=== PATIENT | female | born 1995 | race Caucasian/White ===

== ENCOUNTER 2016-12-26 16:08 | Emergency (ER) | payer OTHER ==
[2014-10-12 05:55] VITALS: BMI 27.5
[~2016-12-26 16:08] MED LIST: [UNRECOGNIZED DRUG - REMARK]
== END 2016-12-26 18:14 | disposition home or self-care (01) ==
LOC: D.ER 16:08
DX: S60.131A Contusion of right middle finger with damage to nail, initial encounter (principal); S60.141A Contusion of right ring finger with damage to nail, initial encounter; W22.8XXA Striking against or struck by other objects, initial encounter; Y93.89 Activity, other specified; Y92.89 Other specified places as the place of occurrence of the external cause; R20.2 Paresthesia of skin

== ENCOUNTER 2016-12-28 21:35 | Emergency (ER) | payer OTHER ==
[2014-10-12 05:55] VITALS: BMI 27.5
== END 2016-12-29 00:52 | disposition home or self-care (01) ==
LOC: D.ER 21:35
DX: L03.011 Cellulitis of right finger (principal)

== ENCOUNTER 2018-04-27 19:29 | Emergency (ER) | payer SELFPAY ==
[~2018-04-27] VITALS: Ht 160 cm; Wt 68.2 kg
[2018-04-27 19:37] VITALS: Ht 160 cm; Wt 68.2 kg
[2018-04-27] MEDS ORDERED: OTC COUGH MEDS (19:39)
[2018-04-27] MEDS ORDERED: PHENERGAN DM SYR5 ML PO (20:29)
[2018-04-27] MEDS ORDERED: MEDROL DOSE PACK4 MG PO (20:29)
[2018-04-27 22:00] VITALS: BP 128/76
== END 2018-04-27 22:03 | disposition home or self-care (01) ==
LOC: D.ER 19:29
DX: J06.9 Acute upper respiratory infection, unspecified (principal); J40 Bronchitis, not specified as acute or chronic; F17.200 Nicotine dependence, unspecified, uncomplicated

== ENCOUNTER 2018-07-23 08:41 | Emergency (ER) | payer MEDICAID ==
[~2018-07-23] VITALS: Ht 160 cm; Wt 66.8 kg
[~2018-07-23 08:41] MED LIST changes: +MEDROL DOSE PACK4 MG PO; +OTC COUGH MEDS; +PHENERGAN DM SYR5 ML PO
[2018-07-23 08:55] VITALS: Ht 160 cm; Wt 66.8 kg
[2018-07-23 09:27] LABS: BASOPHILS 0.2 % (0-2); EOSINOPHILS 0.3 % (0-7); HEMATOCRIT 44.4 % (36.0-48.0); HEMOGLOBIN 15.1 g/dL (12-16); IMMATURE GRANULOCYTES 0.3 % (0-5); LYMPHOCYTES 18.5 % (15-50); MCH 27.6 pg (26.0-34.0); MCV 81.2 fL (80.0-100.0); MEAN PLATELET VOLUME 10.5 fL (7.4-10.4); MONOCYTES 4.7 % (2-11); PLATELET COUNT 261 10x3/uL (130-400); RBC 5.47 10x6/uL (4.00-5.40); RDW 14.2 % (11.5-14.5); WBC 8.9 10x3/uL (4.8-10.8)
[2018-07-23 09:37] LABS: APTT 29.9 SECONDS (22.8-39.4); INR 0.91 (0.85-1.17); PROTIME 11.8 SECONDS (11.6-15.0)
[2018-07-23 09:40] LABS: ALBUMIN 4.5 g/dL (3.4-5.0); ALKALINE PHOSPHATASE 94 U/L (46-116); ALT (SGPT) 52 U/L (10-68); BILIRUBIN - TOTAL 0.37 mg/dL (0.2-1.3); CALC OSMOLALITY 280 mosm/kg (275-300); CALCIUM 9.4 mg/dL (8.5-10.1); CARBON DIOXIDE 26.2 mmol/L (21.0-32.0); CHLORIDE - SERUM 104 mmol/L (98-107); CREATININE - SERUM 0.8 mg/dL (0.6-1.3); GLUCOSE 112 mg/dL (74-106); POTASSIUM - SERUM 3.6 mmol/L (3.5-5.1); PROTEIN - SERUM 8.8 g/dL (6.4-8.2); SODIUM 141 mmol/L (136-145); UREA NITROGEN 11 mg/dL (7-18); eGFR NON AFRICAN AMERICAN > 90 mL/min (90-120)
[2018-07-23 09:42] LABS: HCG SERUM NEGATIVE (NEGATIVE)
[2018-07-23 09:44] LABS: AMYLASE - SERUM 62 U/L (25-115); BILIRUBIN - DIRECT 0.09 mg/dL (0.00-0.30); BILIRUBIN - INDIRECT 0.28 mg/dL (0.00-1.00); LIPASE 200 U/L (73-393); TROPONIN-I < 0.017 ng/mL (0.000-0.060)
[2018-07-23 09:46] LABS: APPEARANCE CLEAR (CLEAR); BILIRUBIN NEGATIVE (NEGATIVE); COLOR YELLOW (YELLOW); GLUCOSE NEGATIVE (NEGATIVE); KETONE NEGATIVE (NEGATIVE); NITRITE NEGATIVE (NEGATIVE); PROTEIN NEGATIVE (NEGATIVE); UROBILINOGEN NORMAL (NORMAL)
[2018-07-23] MEDS ORDERED: CARAFATE1 G PO (11:40)
[2018-07-23] MEDS ORDERED: PROTONIX40 MG PO (11:40)
[2018-07-23 11:52] VITALS: BP 122/80
== END 2018-07-23 11:53 | disposition home or self-care (01) ==
LOC: D.ER 08:41
PROVIDERS: Family Medicine
DX: R10.13 Epigastric pain (principal); K29.70 Gastritis, unspecified, without bleeding; N83.202 Unspecified ovarian cyst, left side

== ENCOUNTER 2018-07-28 13:40 | Inpatient (IN) | payer MEDICAID ==
[~2018-07-28] VITALS: Ht 160 cm; Wt 66.7 kg
[~2018-07-28 13:40] MED LIST changes: +CARAFATE1 G PO; +PROTONIX40 MG PO
[2018-07-28] MEDS ORDERED: TYLENOL W/CODEI1 TAB PO (13:48)
[2018-07-28 14:15] LABS: BASOPHILS 0.3 % (0-2); EOSINOPHILS 1.9 % (0-7); HEMATOCRIT 41.4 % (36.0-48.0); IMMATURE GRANULOCYTES 0.3 % (0-5); MCH 27.4 pg (26.0-34.0); MCHC 33.8 g/dL (31.0-37.0); MEAN PLATELET VOLUME 10.1 fL (7.4-10.4); MONOCYTES 5.3 % (2-11); NEUTROPHILS 62.2 % (40-80); PLATELET COUNT 258 10x3/uL (130-400); RBC 5.11 10x6/uL (4.00-5.40); RDW 14.1 % (11.5-14.5); WBC 6.9 10x3/uL (4.8-10.8)
[2018-07-28 14:25] LABS: APTT 31.9 SECONDS (22.8-39.4)
[2018-07-28 14:26] LABS: HCG SERUM NEGATIVE (NEGATIVE); INR 0.9 (0.85-1.17); PROTIME 11.7 SECONDS (11.6-15.0)
[2018-07-28 14:43] LABS: ALKALINE PHOSPHATASE 85 U/L (46-116); ALT (SGPT) 32 U/L (10-68); BILIRUBIN - TOTAL 0.32 mg/dL (0.2-1.3); CALC OSMOLALITY 283 mosm/kg (275-300); CALCIUM 9.1 mg/dL (8.5-10.1); CARBON DIOXIDE 27.8 mmol/L (21.0-32.0); CHLORIDE - SERUM 107 mmol/L (98-107); CREATININE - SERUM 0.7 mg/dL (0.6-1.3); GLUCOSE 87 mg/dL (74-106); POTASSIUM - SERUM 3.8 mmol/L (3.5-5.1); PROTEIN - SERUM 7.9 g/dL (6.4-8.2); SODIUM 144 mmol/L (136-145); UREA NITROGEN 7 mg/dL (7-18); eGFR NON AFRICAN AMERICAN > 90 mL/min (90-120)
--- NOTE | 2018-07-28 15:45 | NUR ---
Received pt from ER by wheelchair, she is alert and orient x 3. IV to left AC with NS infusing per orders. Pt rates pain at 4/10 at this time states thats better than before, resumes texting on her phone. To bathroom per her request and understands that urine sample is needed. Report was received from Kojo Parks RN prior to pt arrival. Family in room at this time.
[2018-07-28 15:55] VITALS: Ht 160 cm; Wt 66.7 kg
--- NOTE | 2018-07-28 16:15 | NUR ---
Assessment completed. preop meds as ordered by anesthsia given and scanned to emar. SCD's bilat and pt states understanding of use. Denies any questions at this time.
--- NOTE | 2018-07-28 16:58 | NUR ---
surgery called requesting that pt be given pre-op meds reported that this has be completed.
[2018-07-28 17:18] LABS: APPEARANCE CLEAR (CLEAR); BILIRUBIN NEGATIVE (NEGATIVE); COLOR YELLOW (YELLOW); GLUCOSE NEGATIVE (NEGATIVE); KETONE NEGATIVE (NEGATIVE); NITRITE NEGATIVE (NEGATIVE); PROTEIN NEGATIVE (NEGATIVE); SPECIFIC GRAVITY 1.005 (1.005-1.020); UROBILINOGEN NORMAL (NORMAL)
--- NOTE | 2018-07-28 20:16 | NUR ---
LATEX FREE SMALL PLACED IN RECOVERY USING STERILE TECHNIQUE PER DR. ERVIN VERBAL ORDER. STAT LOCK IN PLACE. 75ML CLEAR YELLOW URINE TO DRAINAGE BAG.
--- NOTE | 2018-07-28 20:58 | NUR ---
PT TO LABOR UNIT FROM RECOVERY AT THIS TIME
[2018-07-28 21:00] VITALS: BP 126/73
--- NOTE | 2018-07-28 21:00 | NUR ---
POST OP VITALS TAKEN AT THIS TIME. PT RESTING COMFORTABLY WITH EYES CLOSED, O2 VIA NC@3L/MIN, 18 GAUGE IV TO LEFT A/C WITH LR INFUSING PER MD ORDERS. LOW TRANSVERSE ABDOMINAL INCISION CLOSED WITH GLUE, NO REDNESS SWELLING OR DRAINAGE NOTED. SMALL CATHETER DRAINING TO GRAVITY WITH 100 ML CLEAR YELLOW URINE NOTED IN UROMETER. SCD BOOTS IN PLACE AND MACHINE ON AND WORKING. FAMILY AT BEDSIDE.
[2018-07-28 21:35] VITALS: BP 126/74
[2018-07-28 21:50] VITALS: BP 126/67
--- NOTE | 2018-07-28 22:00 | NUR ---
PT RESTING QUIETLY WITH EYES CLOSED, RESPIRATIONS EVEN AND NON LABORED. OXYGEN TURNED DOEN TO 2L/MIN. IV RATE CHANGED TO 125ML/HR. FAMILY AT BEDSIDE, PROVIDED WITH LINENS. 50ML CLEAR YELLOW URINE NOTED IN UROMETER.
[2018-07-28 22:05] VITALS: BP 122/69
--- NOTE | 2018-07-28 23:00 | NUR ---
PATIENT RESTING QUIETLY WITH FAMILY AT BEDSIDE. PT STATES THAT SHE IS HAVING SOME PAIN BUT REQUESTS HER GLASSES FROM HER BAG AND IS ABLE TO SIT UP AND USE HER PHONE. FRESH ICE PACK PLACED TO ABDOMEN, &ICE CHIPS PROVIDED. 75 ML CLEAR YELLOW URINE NOTED IN UROMETER. INCENTIVE SPIROMETER PROVIDED WITH TEACHING, PT VERBALIZES UNDERSTANDING. OXYGEN REDUCED TO 1L/MIN. BED REMAINS LOCKED IN LOW POSITION, SIDE RAILS UPX2, CALL CARTY AND TRAY TABLE IN REACH.
[2018-07-28 23:07] VITALS: BP 111/80
[2018-07-29] VITALS (7 sets, daily range): BP systolic 103–127; BP diastolic 55–73
--- NOTE | 2018-07-29 00:20 | NUR ---
DILAUDID 1MG SLOW IVP PER MD ORDERS AND PT REQUEST. SEE EMAR. SMALL CATHETER DRAINING TO GRAVITY, 100ML CLEAR YELLOW URINE NOTED IN UROMETER. OXYGEN AT 2L/MIN VIA NASAL CANNULA.
--- NOTE | 2018-07-29 03:00 | NUR ---
percocet 5/325mg two tabs po per pt request and md orders.
--- NOTE | 2018-07-29 04:06 | NUR ---
PATIENT LYING IN BED, ENCOURAGED TO TAKE DEEP BREATHS. PT USING HER CELL PHONE, NO DISTRESS NOTED. WILL CONTINUE TO MONITOR.
--- NOTE | 2018-07-29 05:14 | NUR ---
DR ERVIN CALLED LABOR UNIT, REPORT GIVEN ON PT STATUS. NEW ORDERS NOTED TO GIVE TORADOL 30MG IVPX1 DOSE AND PT MAY HAVE A FULL LIQUID DIET FOR BREAKFAST.
[2018-07-29 07:30] LABS: CALC OSMOLALITY 282 mosm/kg (275-300); CALCIUM 8.7 mg/dL (8.5-10.1); CHLORIDE - SERUM 106 mmol/L (98-107); CREATININE - SERUM 0.7 mg/dL (0.6-1.3); GLUCOSE 129 mg/dL (74-106); SODIUM 142 mmol/L (136-145); UREA NITROGEN 6 mg/dL (7-18); eGFR NON AFRICAN AMERICAN > 90 mL/min (90-120)
[2018-07-29 08:08] LABS: BASOPHILS 0.1 % (0-2); EOSINOPHILS 0 % (0-7); HEMATOCRIT 38.2 % (36.0-48.0); HEMOGLOBIN 12.8 g/dL (12-16); IMMATURE GRANULOCYTES 0.3 % (0-5); LYMPHOCYTES 5.1 % (15-50); MCH 27.1 pg (26.0-34.0); MCHC 33.5 g/dL (31.0-37.0); MCV 80.8 fL (80.0-100.0); MEAN PLATELET VOLUME 10.6 fL (7.4-10.4); NEUTROPHILS 91.5 % (40-80); PLATELET COUNT 250 10x3/uL (130-400); RBC 4.73 10x6/uL (4.00-5.40); RDW 13.8 % (11.5-14.5)
[2018-07-29 08:12] LABS: WBC 13.5 10x3/uL (4.8-10.8)
--- NOTE | 2018-07-29 08:58 | NUR ---
ASSESSMENT DONE. PT AWAKE AND LOOKING AT CELL PHONE. RATES PAIN A 10 ON SCALE OF 0-10. STATES PAIN IS AT INCISION. REQUESTING PAIN MEDICATION. PT MOM AT BEDSIDE. STATES THAT DRANK ABOUT 50% OF FULL LIQ BREAKFAST.
--- NOTE | 2018-07-29 11:19 | NUR ---
IV CHANGED TO SALINE FLUSH PER ORDER DR ERVIN.
--- NOTE | 2018-07-29 11:24 | NUR ---
kim cath removed post bulb deflated- 1050cc urine return in bag.
--- NOTE | 2018-07-29 11:54 | NUR ---
states that pain is better. denies needing to void yet.
--- NOTE | 2018-07-29 12:40 | NUR ---
PT OOB AND AMB TO BR. VOIDS 200 ML OF CLEAR, YELLOW URINE. PERICARE DONE PER PT. PANTIES AND PAD ON. PT AMBULATES BACK TO BED. NOLAN ACTIVITY WELL. PT PROVIDED WITH FRESH ICE PACK PER REQUEST. SR UPX 2. CALL LIGHT IN REACH. FAMILY MEMBER CONTINUES IN ROOM WITH PT.
--- NOTE | 2018-07-29 13:36 | NUR ---
rings call light- requesting pain medication. rates pain an 8 on scale of 0-10. denies passing gas yet. med given.
--- NOTE | 2018-07-29 15:00 | NUR ---
shower done- linens changed. ambulating in hallway. dr yusuf in unit.
--- NOTE | 2018-07-29 18:32 | NUR ---
requesting saline lock out- states "it hurts" appearance wnl. saline lock removed with cath tip intact. pressure held and bandaide applied. ambulates around unit- requesting pain medication after walking. rates pain an 8 on scale of 0-10. using incenstive annabelle.
--- NOTE | 2018-07-29 19:02 | NUR ---
PT. AWAKE AND ORIENTED. LYING ON BACK WITH HOB AT 45 DEGREES. PT. EATING ICE CREAM AND TEXTING ON PHONE, CHEERFUL. INQUIRED TO PT'S PAIN SCORE AND PT. STATES "PROBABLY AN 8". PT'S MOTHER AT BEDSIDE AND STATES "SHE CAN TOLERATE ANY DISCOMFORT." INQUIRED OF PT. WHAT THE LOWEST PAIN SCORE THAT SHE HAD HAD SINCE SURGERY AND PT. STATES "6". ABD. INCISION CLEAN AND DRY. NO VAGINAL DRAINAGE NOTED. BREATH SOUNDS CLEAR AND BOWEL SOUNDS ACTIVE. PT. REPORTS THAT SHE IS PASSING GAS. DENIES ANY PAIN IN LOWER EXTREMITIES. INQUIRED IF PT. HAD ANY ASSISTANCE FOR WHEN SHE GOES HOME. REPORTS THAT SHE LIVES WITH A BOYFRIEND AND HE IS TAKING OFF WORK. ENCOURAGED PT. TO CONTINUE TO COUGH AND DEEP BREATHE AND USE INCENTIVE SPIROMETER. REPORTS THAT SHE CAN ACCOMPLISH UP TO 1500 ON IS. ENCOURAGED TO TRY AND GET IS TO 2000. ENCOURAGED PT. TO GET OUT OF BED AND WALK AGAIN IN HALLWAY BEFORE GOING TO BED FOR THE NIGHT. PT. STATED UNDERSTANDING TO ALL INSTRUCTIONS/ENCOURAGEMENT. PT'S MOTHER AT BEDSIDE.
--- NOTE | 2018-07-29 20:17 | NUR ---
ON PHONE AND WATCHING TV. LYING ON BACK WITH HOB AT 30 DEGREES. PT'S MOTHER ON SOFA. DENIES ANY NEEDS.
--- NOTE | 2018-07-29 21:33 | NUR ---
C/O ITCHING FROM "HEAD TO TOE, BUT ESPECIALLY MY FEET." STATES THAT NOTICED SHE BEGAN ITCHING FOLLOWING TAKING A SHOWER THIS AFTERNOON AND THINKS THAT SHE HOSPITAL SOAP HAS CAUSED IT. REQUESTS BENADRYL. SKIN INSPECTIONS DONE, NO RASH NOTED, NO PABLO NOTED ON SKIN FROM SCRATCHING. MEDS REVIEWED, DR. ERVIN NOTIFIED AND ORDERS REC'D FOR 50 MG PO BENADRYL AND 10 MG PO AMBIEN.
--- NOTE | 2018-07-29 21:51 | NUR ---
WALKING IN HALLWAY. GAIT STEADY. PT'S MOTHER WALKING WITH HER.
--- NOTE | 2018-07-29 22:14 | NUR ---
SANDWICH TRAY SERVED TO PT. PT'S MOTHER REMAINS IN ROOM WITH PT.
--- NOTE | 2018-07-29 22:40 | NUR ---
BACK TO ROOM FROM AMBULATING ON UNIT. BENADRYL AND AMBIEN GIVEN PER ORDER. PT EDUCATED ON MEDS, VERBALIZES UNDERSTANDING. VSS. C/O PAIN 10/31, STATES THAT PAIN IS BEST THAT IT HAS BEEN SINCE HAVING SURGERY. SCD'S PLACED ON BLE. DENIES ADDITIONAL NEEDS. PT'S MOTHER REMAINS AT BEDSIDE. BED IN LOW POSITION WITH UPPER SIDE RAILS RAISED X2. CALL LIGHT AND PHONE WITHIN REACH. WILL CONTINUE TO MONITOR AND ASSIST PRN.
--- NOTE | 2018-07-29 23:52 | NUR ---
SCD PUMP BEEPING. INTO PT. ROOM. SCD TUBING STRAIGHTENED AND BEEPING STOPPED. PT. LYING ON RT SIDE WITH UNLABORED RESPIRATIONS. 600CC URINE NOTED IN [place] HAT AND EMPTIED. PT'S MOTHER SLEEPING ON SOFA. NEITHER PT. OR MOTHER AROUSED TO THIS NURSE IN ROOM.
--- NOTE | 2018-07-30 01:26 | NUR ---
LYING ON BACK WITH EYES CLOSED. RESPIRATIONS UNLABORED. SCDS ON AND FUNCTIONAL. SIDE RAILS UP X 2. PT'S MOTHER SLEEPING ON SOFA.
--- NOTE | 2018-07-30 03:44 | NUR ---
LYING ON BACK WITH EYES CLOSED. RESPIRATIONS UNLABORED. PT'S MOTHER SLEEPING ON SOFA.
[2018-07-30 04:32] VITALS: BP 106/59
--- NOTE | 2018-07-30 04:32 | NUR ---
AWAKENED FOR VITAL SIGN ASSESSMENT. DR. ERVIN TO ROOM FOR ROUNDING. INFORMED PT. THAT SHE WILL DISCHARGE TODAY AND SCRIPTS ARE WRITTEN. INFORMED PT. THAT HE DESIRES TO SEE IN OFFICE IN 2 WEEKS. PT. AWAKE AT SHORT INTERVALS. LYING ON RT, SIDE WITH HOB AT 15 DEGREES. RESPIRATIONS UNLABORED.
--- NOTE | 2018-07-30 04:46 | OP ---
PATIENT NAME: ITA HUANG MEDICAL RECORD: [id number] :93 LOCATION:[id number] ADMISSION DATE:07/28/18 SURGEON: WILD ERVIN MD DATE OF OPERATION: 07/28/2018 PREOPERATIVE DIAGNOSES: 1. Abdominal pain. 2. Left ovarian mass. POSTOPERATIVE DIAGNOSES: 1. Abdominal pain. 2. Left ovarian mass. 3. Left endometrioma. PROCEDURES: 1. Diagnostic laparoscopy. 2. Exploratory laparotomy. 3. Lysis of adhesions. 4. Left oophorectomy. SURGEON: Wild Ervin MD FENCE INSTALLER FOREMAN: Osmani Rose. ANESTHESIA: General. FINDINGS: Left ovary is enlarged to approximately 7-8 cm. It is densely adhesed to the large bowel on the left side. Uterus and right tube and ovary unremarkable. Multiple powder burn lesions across the pelvis consistent with endometriosis. SPECIMEN REMOVED: Left ovary. SPECIMEN DISPOSITION: Pathology. ESTIMATED BLOOD LOSS: 150. FLUIDS: 1600cc of lactated Ringer's. URINE OUTPUT: Quantity sufficient void prior to this procedure. DRAINS: Ellison to gravity. COMPLICATIONS: None. INDICATIONS: The patient is a 23-year-old female seen in the Emergency Room with a large cyst. The patient was evaluated in the clinic and given precautions to return for worsening pain. The patient states that the pain suddenly increased and did not subside. She presents with a tender abdomen and was consented for a diagnostic laparoscopy and any indicated procedure. DESCRIPTION OF PROCEDURE: After informed consent was assured, the patient was taken to the operating room where anesthetic was obtained. The patient was now prepped and draped in the usual sterile fashion. The infraumbilical incision was made to accommodate a 5-mm trocar, which was inserted under direct OPERATIVE REPORT [id number] ITA HUANG visualization. Pneumoperitoneum was developed. The above findings were encountered. The decision was made to move to an exploratory laparotomy. A Pfannenstiel skin incision was made and the abdomen entered. An Ehsan O self-retaining ring was inserted and tightened. Left ovary is visualized. Ovary is firmly attached to bowel. Multiple adhesions were taken down with Metzenbaum scissors. Once the ovary is mobilized to its fullest extent with a dense adhesion posteriorly to the large bowel, Katerine clamps were used to remove the ovary from its attachments to the adnexa. This begins medially with serial clamps applied to the ovary with multiple endometriomas are removed. A section of the ovary remains behind attached to the large bowel due to its dense adhesions. Pelvis was copiously irrigated and irrigant removed. Several areas of bleeding were noticed along the raw edges from the lysis of adhesions. The Bovie cautery as well as Surgicel powder used to obtain hemostasis. Over this area, Interceed was placed. Sponge, lap, and needle count was correct times 2. The fascia was closed with a running stitch of 0 Vicryl and then skin closed with a subcuticular stitch using 4-0 Monocryl on a cutter. The trocar site is closed with a 3-0 chromic. The final sponge, lap, and needle counts correct. TRANSINT:[id number] Voice Confirmation ID: [id number] DOCUMENT ID: [id number] WILD ERVIN MD at 0446 CC: [id number] DICTATION DATE: 07/28/182001 UNLOADING CHECKER: 07/29/18 0144 ADM IN [facility] [address] [place] [address]
--- NOTE | 2018-07-30 05:55 | NUR ---
SCDS DISCONNECTED AND PT. UP TO BATHROOM. VOIDED AND BACK TO BED. SCDS RECONNECTED TO PUMP. ASKED PT. IF SHE REMEMBERED THAT DR. ERVIN MADE ROUNDS ON HER AND TOLD HER SHE COULD DISCHARGE. PT. STATES THAT SHE WAS NOT AWARE OF HIS VISIT. PT'S MOTHER ASLEEP ON SOFA.
--- NOTE | 2018-07-30 07:30 | NUR ---
Attempt to waken pt verbally and with touch, she does open her eyes but goes right back to sleep. Will try again after breakfast has been delivered.
[2018-07-30] MEDS ORDERED: PERCOCET 5-3251 TAB PO (08:42)
[2018-07-30] MEDS ORDERED: IBUPROFEN800 MG PO (08:42)
[2018-07-30 09:00] VITALS: BP 126/72
--- NOTE | 2018-07-30 09:00 | NUR ---
Pt awaken with touch and repeatedly calling her name. Her mother wakes at this time also. Pt does get up with encouragment from nurse and amb to bathroom per herself. AM assessment completed as seen on flowsheet. Per pt she does not remember Dr Balbuena visiting this am but does know she is going home today and has called her boyfriend to come and pick her up.
--- NOTE | 2018-07-30 10:04 | NUR ---
PAIN MED GIVEN REQUESTED, RATES PAIN AT INCISION SITE 11/30. ALSO GIVEN SMALL COLA PER HER REQUEST.
--- NOTE | 2018-07-30 10:16 | NUR ---
verbal and written discharge instructions gone over with pt, she is provided with written scripts for Percocet 5/325mg and Motrin 800mg and states understanding of use. S/S of infection gone over verbally and she states her understanding. Will call when her ride is here.
--- NOTE | 2018-07-30 10:39 | NUR ---
PT TAKEN OUT BY WHEELCHAIR, HOME WITH FAMILY BY PRIVATE CAR.
--- NOTE | 2018-07-30 19:04 | DS ---
PATIENT:ITA HUANG :89 MEDICAL RECORD: [id number] DISCHARGE SUMMARY ADMISSION DATE: 07/28/18 DISCHARGE DATE: 07/30/18 DATE OF ADMISSION: 07/28/2018 DATE OF DISCHARGE: 07/30/2018 ADMISSION DIAGNOSES: 1. Pelvic mass. 2. Abdominal pain. DISCHARGE DIAGNOSES: 1. Pelvic mass. 2. Abdominal pain. 3. Endometrioma. 4. Endometriosis. ATTENDING: Rika Ervin MD PROCEDURE PERFORMED WHILE HOSPITALIZED: 1. Diagnostic laparoscopy. 2. Lysis of adhesions. 3. Left oophorectomy. 4. Exploratory laparotomy. HISTORY OF PRESENT ILLNESS AND INDICATION FOR HOSPITALIZATION: See the H&P in the chart. SUMMARY OF HOSPITALIZATION: The patient was admitted to the hospital and underwent the procedure without incident. The patient has been doing well postop, is voiding without difficulty, tolerating regular diet and ambulating. The incision was clean, dry and intact at the time of discharge. Treatment for her endometriosis has been discussed at length and she will follow up with me in 2 weeks at the clinic. DISCHARGE MEDICATIONS: Include Percocet and ibuprofen. The patient has been given the standard postoperative precautions. TRANSINT:[id number] Voice Confirmation ID: [id number] DOCUMENT ID: [id number] RIKA ERVIN MD at 1904 CC: [id number] DICTATION DATE: 07/30/18 045 CUSTODIAL LABORER: 07/30/18 0527 DIS IN 07/30/18 [facility] [address] [place] [id number]
[2018-07-31] MEDS ORDERED: PHENERGAN25 M1 PO (22:33)
== END 2018-07-30 10:40 | disposition home or self-care (01) | DRG 743 ==
LOC: D.ER 13:40 → D.LD 14:30 → D.EDHOLD 14:30 → OBSVTIME 14:30 → D.LD 14:34
PROVIDERS: Family Medicine; ADMIT Obstetrics & Gynecology; ATTEND Obstetrics & Gynecology
PROC: 0UT10ZZ Resection of Left Ovary, Open Approach (ICD-10-PCS; principal; 2018-07-28 13:00)
DX: N80.1 Endometriosis of ovary (principal); N73.6 Female pelvic peritoneal adhesions (postinfective); N80.9 Endometriosis, unspecified

== ENCOUNTER 2018-07-31 20:27 | Emergency (ER) | payer MEDICAID ==
[~2018-07-31] VITALS: Ht 160 cm; Wt 63.5 kg
[~2018-07-31 20:27] MED LIST changes: +IBUPROFEN800 MG PO; +PERCOCET 5-3251 TAB PO; +TYLENOL W/CODEI1 TAB PO
[2018-07-31 20:33] VITALS: Ht 160 cm; Wt 63.5 kg
[2018-07-31 21:19] LABS: BASOPHILS 0.3 % (0-2); EOSINOPHILS 3.1 % (0-7); HEMATOCRIT 38.3 % (36.0-48.0); HEMOGLOBIN 12.9 g/dL (12-16); IMMATURE GRANULOCYTES 0.4 % (0-5); MCH 27.4 pg (26.0-34.0); MCHC 33.7 g/dL (31.0-37.0); MCV 81.5 fL (80.0-100.0); MEAN PLATELET VOLUME 9.9 fL (7.4-10.4); MONOCYTES 8.4 % (2-11); NEUTROPHILS 56.8 % (40-80); PLATELET COUNT 255 10x3/uL (130-400); RDW 13.7 % (11.5-14.5); WBC 6.8 10x3/uL (4.8-10.8)
[2018-07-31 21:36] LABS: ALBUMIN 3.4 g/dL (3.4-5.0); ALKALINE PHOSPHATASE 92 U/L (46-116); ALT (SGPT) 50 U/L (10-68); BILIRUBIN - TOTAL 0.38 mg/dL (0.2-1.3); CALC OSMOLALITY 282 mosm/kg (275-300); CALCIUM 8.8 mg/dL (8.5-10.1); CARBON DIOXIDE 26.5 mmol/L (21.0-32.0); CHLORIDE - SERUM 105 mmol/L (98-107); CREATININE - SERUM 0.8 mg/dL (0.6-1.3); GLUCOSE 92 mg/dL (74-106); PROTEIN - SERUM 7.1 g/dL (6.4-8.2); SODIUM 143 mmol/L (136-145); UREA NITROGEN 6 mg/dL (7-18); eGFR NON AFRICAN AMERICAN > 90 mL/min (90-120)
[2018-07-31] MEDS ORDERED: PHENERGAN25 M1 PO (22:33)
[2018-07-31 23:11] VITALS: BP 123/79
== END 2018-07-31 23:11 | disposition home or self-care (01) ==
LOC: D.ER 20:27
PROVIDERS: Emergency Medicine
DX: R11.0 Nausea (principal)

== ENCOUNTER 2018-08-21 04:17 | Emergency (ER) | payer MEDICAID ==
[~2018-08-21] VITALS: Ht 160 cm; Wt 68.5 kg
[~2018-08-21 04:17] MED LIST changes: +PHENERGAN25 M1 PO
[2018-08-21 04:20] VITALS: Ht 160 cm; Wt 68.5 kg
[2018-08-21 04:57] LABS: BASOPHILS 0.3 % (0-2); EOSINOPHILS 5.7 % (0-7); HEMATOCRIT 38.3 % (36.0-48.0); HEMOGLOBIN 12.7 g/dL (12-16); IMMATURE GRANULOCYTES 0.1 % (0-5); LYMPHOCYTES 31.7 % (15-50); MCH 27.2 pg (26.0-34.0); MCHC 33.2 g/dL (31.0-37.0); MEAN PLATELET VOLUME 10.5 fL (7.4-10.4); MONOCYTES 6.7 % (2-11); NEUTROPHILS 55.5 % (40-80); PLATELET COUNT 235 10x3/uL (130-400); RBC 4.67 10x6/uL (4.00-5.40); RDW 14.2 % (11.5-14.5); WBC 7.4 10x3/uL (4.8-10.8)
[2018-08-21 05:07] LABS: HCG URINE NEGATIVE (NEGATIVE)
[2018-08-21 05:08] LABS: APPEARANCE HAZY (CLEAR); BACTERIA NONE SEEN /hpf (NONE SEEN); BILIRUBIN NEGATIVE (NEGATIVE); COLOR YELLOW (YELLOW); EPITHELIAL CELLS 0-5 /hpf (0-5); GLUCOSE NEGATIVE (NEGATIVE); KETONE NEGATIVE (NEGATIVE); NITRITE NEGATIVE (NEGATIVE); PROTEIN NEGATIVE (NEGATIVE); RED CELLS - URINE 25-50 /hpf (0-5); UROBILINOGEN NORMAL (NORMAL); WHITE CELLS - URINE 0-5 /hpf (0-5)
[2018-08-21 05:10] LABS: ALBUMIN 3.6 g/dL (3.4-5.0); ALKALINE PHOSPHATASE 66 U/L (46-116); ALT (SGPT) 23 U/L (10-68); BILIRUBIN - TOTAL 0.26 mg/dL (0.2-1.3); CALC OSMOLALITY 278 mosm/kg (275-300); CALCIUM 8.8 mg/dL (8.5-10.1); CARBON DIOXIDE 23.8 mmol/L (21.0-32.0); CHLORIDE - SERUM 107 mmol/L (98-107); CREATININE - SERUM 0.7 mg/dL (0.6-1.3); GLUCOSE 104 mg/dL (74-106); POTASSIUM - SERUM 4.2 mmol/L (3.5-5.1); PROTEIN - SERUM 6.8 g/dL (6.4-8.2); SODIUM 141 mmol/L (136-145); UREA NITROGEN 8 mg/dL (7-18); eGFR NON AFRICAN AMERICAN > 90 mL/min (90-120)
[2018-08-21 05:14] LABS: AMYLASE - SERUM 62 U/L (25-115); LIPASE 331 U/L (73-393)
[2018-08-21 05:16] LABS: TROPONIN-I < 0.017 ng/mL (0.000-0.060)
[2018-08-21] MEDS ORDERED: ACETAMINOPHEN500 M1 PO (07:14)
[2018-08-21] MEDS ORDERED: IBUPROFEN800 MG PO (07:14)
[2018-08-21] MEDS ORDERED: CYCLOBENZAPRINE10 MG PO (07:14)
[2018-08-21 07:28] VITALS: BP 104/68
== END 2018-08-21 07:29 | disposition home or self-care (01) ==
LOC: D.ER 04:17
PROVIDERS: Family Medicine
DX: G89.18 Other acute postprocedural pain (principal); N94.6 Dysmenorrhea, unspecified

== ENCOUNTER 2018-09-14 14:59 | Emergency (ER) | payer MEDICAID ==
[~2018-09-14] VITALS: Ht 160 cm; Wt 70.5 kg
[~2018-09-14 14:59] MED LIST changes: +ACETAMINOPHEN500 M1 PO; +CYCLOBENZAPRINE10 MG PO
[2018-09-14 15:01] VITALS: BP 121/83; Ht 160 cm; Wt 70.5 kg
[2018-09-14 16:24] LABS: BASOPHILS 0.2 % (0-2); EOSINOPHILS 2.7 % (0-7); HEMATOCRIT 38.5 % (36.0-48.0); HEMOGLOBIN 13.3 g/dL (12-16); IMMATURE GRANULOCYTES 0.3 % (0-5); MCH 27.4 pg (26.0-34.0); MCHC 34.5 g/dL (31.0-37.0); MCV 79.2 fL (80.0-100.0); MEAN PLATELET VOLUME 9.8 fL (7.4-10.4); MONOCYTES 4.8 % (2-11); PLATELET COUNT 249 10x3/uL (130-400); RBC 4.86 10x6/uL (4.00-5.40); RDW 13.2 % (11.5-14.5); WBC 10.2 10x3/uL (4.8-10.8)
[2018-09-14 16:26] LABS: APPEARANCE CLEAR (CLEAR); COLOR YELLOW (YELLOW); GLUCOSE NEGATIVE (NEGATIVE); NITRITE NEGATIVE (NEGATIVE); PROTEIN NEGATIVE (NEGATIVE)
[2018-09-14 16:27] LABS: BILIRUBIN NEGATIVE (NEGATIVE); KETONE NEGATIVE (NEGATIVE); UROBILINOGEN NORMAL (NORMAL)
[2018-09-14 16:48] LABS: ALBUMIN 3.8 g/dL (3.4-5.0); ALKALINE PHOSPHATASE 69 U/L (46-116); ALT (SGPT) 26 U/L (10-68); BILIRUBIN - TOTAL 0.24 mg/dL (0.2-1.3); CALC OSMOLALITY 275 mosm/kg (275-300); CALCIUM 9.3 mg/dL (8.5-10.1); CARBON DIOXIDE 29.7 mmol/L (21.0-32.0); CHLORIDE - SERUM 101 mmol/L (98-107); CREATININE - SERUM 0.7 mg/dL (0.6-1.3); GLUCOSE 77 mg/dL (74-106); POTASSIUM - SERUM 3.2 mmol/L (3.5-5.1); PROTEIN - SERUM 7.6 g/dL (6.4-8.2); SODIUM 139 mmol/L (136-145); UREA NITROGEN 9 mg/dL (7-18); eGFR NON AFRICAN AMERICAN > 90 mL/min (90-120)
[2018-09-14 18:22] LABS: HCG URINE NEGATIVE (NEGATIVE)
[2018-09-14] MEDS ORDERED: BACLOFEN20 M1 PO (19:06)
[2018-09-14] MEDS ORDERED: VOLTAREN75 MG PO (19:06)
== END 2018-09-14 20:09 | disposition home or self-care (01) ==
LOC: D.ER 14:59
PROVIDERS: Family Medicine
DX: M25.561 Pain in right knee (principal); S30.1XXA Contusion of abdominal wall, initial encounter; V29.9XXA Motorcycle rider (driver) (passenger) injured in unspecified traffic accident, initial encounter

== ENCOUNTER 2018-10-19 09:00 | Emergency (ER) | payer MEDICAID ==
[~2018-10-19] VITALS: Ht 160 cm; Wt 70.5 kg
[~2018-10-19 09:00] MED LIST changes: +BACLOFEN20 M1 PO; +VOLTAREN75 MG PO
[2018-10-19 09:04] VITALS: Ht 160 cm; Wt 70.5 kg
[2018-10-19 09:39] LABS: BASOPHILS 0.3 % (0-2); EOSINOPHILS 2.3 % (0-7); HEMATOCRIT 39.8 % (36.0-48.0); HEMOGLOBIN 13.6 g/dL (12-16); IMMATURE GRANULOCYTES 0.3 % (0-5); LYMPHOCYTES 23.8 % (15-50); MCH 27.3 pg (26.0-34.0); MCHC 34.2 g/dL (31.0-37.0); MCV 79.8 fL (80.0-100.0); MEAN PLATELET VOLUME 10.2 fL (7.4-10.4); MONOCYTES 6.1 % (2-11); NEUTROPHILS 67.2 % (40-80); PLATELET COUNT 226 10x3/uL (130-400); RBC 4.99 10x6/uL (4.00-5.40); RDW 13.6 % (11.5-14.5); WBC 7.4 10x3/uL (4.8-10.8)
[2018-10-19 09:47] LABS: HCG SERUM NEGATIVE (NEGATIVE)
[2018-10-19 09:52] LABS: ALKALINE PHOSPHATASE 100 U/L (46-116); ALT (SGPT) 52 U/L (10-68); BILIRUBIN - TOTAL 0.27 mg/dL (0.2-1.3); CALC OSMOLALITY 280 mosm/kg (275-300); CARBON DIOXIDE 28.5 mmol/L (21.0-32.0); CHLORIDE - SERUM 107 mmol/L (98-107); CREATININE - SERUM 0.8 mg/dL (0.6-1.3); GLUCOSE 86 mg/dL (74-106); PROTEIN - SERUM 7.7 g/dL (6.4-8.2); SODIUM 142 mmol/L (136-145); UREA NITROGEN 11 mg/dL (7-18); eGFR NON AFRICAN AMERICAN > 90 mL/min (90-120)
[2018-10-19 09:55] LABS: AMYLASE - SERUM 63 U/L (25-115); LIPASE 206 U/L (73-393); TROPONIN-I < 0.017 ng/mL (0.000-0.060)
[2018-10-19 10:07] LABS: APPEARANCE CLEAR (CLEAR); COLOR YELLOW (YELLOW)
[2018-10-19 10:08] LABS: BILIRUBIN NEGATIVE (NEGATIVE); GLUCOSE NEGATIVE (NEGATIVE); KETONE NEGATIVE (NEGATIVE); NITRITE NEGATIVE (NEGATIVE); PROTEIN TRACE mg/dL (NEGATIVE); SPECIFIC GRAVITY 1.015 (1.005-1.020); UROBILINOGEN NORMAL (NORMAL)
[2018-10-19 10:09] LABS: BACTERIA MODERATE /hpf (NONE SEEN); RED CELLS - URINE OCC /hpf (0-5); WHITE CELLS - URINE OCC /hpf (0-5)
[2018-10-19] MEDS ORDERED: ZOFRAN ODT4 MG/UDTAB PO (11:29)
[2018-10-19 12:00] VITALS: BP 134/76
== END 2018-10-19 12:00 | disposition home or self-care (01) ==
LOC: D.ER 09:00
PROVIDERS: Emergency Medicine
DX: R11.10 Vomiting, unspecified (principal)

== ENCOUNTER 2018-10-28 19:33 | Emergency (ER) | payer MEDICAID ==
[~2018-10-28 19:33] MED LIST changes: +ZOFRAN ODT4 MG/UDTAB PO
[2018-10-28 19:42] VITALS: BP 141/106; BMI 27.8
[2018-10-28] MEDS ORDERED: CLEOCIN HCL300 MG PO (21:20)
== END 2018-10-28 21:23 | disposition home or self-care (01) ==
LOC: D.ER 19:33
DX: T25.022A Burn of unspecified degree of left foot, initial encounter (principal); T25.021A Burn of unspecified degree of right foot, initial encounter; X10.2XXA Contact with fats and cooking oils, initial encounter; Y93.G3 Activity, cooking and baking; Y92.010 Kitchen of single-family (private) house as the place of occurrence of the external cause

== ENCOUNTER 2018-11-16 04:25 | Emergency (ER) | payer MEDICAID ==
[~2018-11-16] VITALS: Ht 160 cm; Wt 68.2 kg
[~2018-11-16 04:25] MED LIST changes: +CLEOCIN HCL300 MG PO
[2018-11-16 04:29] VITALS: Ht 160 cm; Wt 68.2 kg
[2018-11-16 05:12] LABS: BASOPHILS 0.2 % (0-2); EOSINOPHILS 1.4 % (0-7); HEMATOCRIT 38.7 % (36.0-48.0); HEMOGLOBIN 13.4 g/dL (12-16); IMMATURE GRANULOCYTES 0.2 % (0-5); LYMPHOCYTES 24.5 % (15-50); MCH 27.3 pg (26.0-34.0); MCHC 34.6 g/dL (31.0-37.0); MEAN PLATELET VOLUME 10.1 fL (7.4-10.4); NEUTROPHILS 67.7 % (40-80); PLATELET COUNT 242 10x3/uL (130-400); RDW 14.3 % (11.5-14.5); WBC 8.7 10x3/uL (4.8-10.8)
[2018-11-16 05:33] LABS: ALBUMIN 3.8 g/dL (3.4-5.0); ALKALINE PHOSPHATASE 79 U/L (46-116); ALT (SGPT) 21 U/L (10-68); BILIRUBIN - TOTAL 0.24 mg/dL (0.2-1.3); CALC OSMOLALITY 280 mosm/kg (275-300); CALCIUM 9.5 mg/dL (8.5-10.1); CARBON DIOXIDE 25.2 mmol/L (21.0-32.0); CHLORIDE - SERUM 105 mmol/L (98-107); CREATININE - SERUM 0.8 mg/dL (0.6-1.3); GLUCOSE 116 mg/dL (74-106); POTASSIUM - SERUM 3.6 mmol/L (3.5-5.1); PROTEIN - SERUM 7.6 g/dL (6.4-8.2); SODIUM 140 mmol/L (136-145); UREA NITROGEN 14 mg/dL (7-18); eGFR NON AFRICAN AMERICAN > 90 mL/min (90-120)
[2018-11-16 05:37] LABS: AMYLASE - SERUM 58 U/L (25-115); LIPASE 263 U/L (73-393)
[2018-11-16 05:39] LABS: TROPONIN-I < 0.017 ng/mL (0.000-0.060)
[2018-11-16 05:40] LABS: HCG SERUM NEGATIVE (NEGATIVE)
[2018-11-16 05:46] LABS: APPEARANCE CLEAR (CLEAR); BILIRUBIN NEGATIVE (NEGATIVE); COLOR YELLOW (YELLOW); GLUCOSE NEGATIVE (NEGATIVE); KETONE NEGATIVE (NEGATIVE); NITRITE NEGATIVE (NEGATIVE); PROTEIN NEGATIVE (NEGATIVE); SPECIFIC GRAVITY 1.015 (1.005-1.020); UROBILINOGEN NORMAL (NORMAL)
[2018-11-16 05:47] LABS: BACTERIA FEW /hpf (NONE SEEN); EPITHELIAL CELLS 0-5 /hpf (0-5); RED CELLS - URINE 0-5 /hpf (0-5); WHITE CELLS - URINE 0-5 /hpf (0-5)
[2018-11-16] MEDS ORDERED: CYCLOBENZAPRINE10 MG PO (06:51)
[2018-11-16] MEDS ORDERED: ACETAMINOPHEN500 M1 PO (06:51)
[2018-11-16] MEDS ORDERED: IBUPROFEN800 MG PO (06:51)
[2018-11-16 07:14] VITALS: BP 109/74
== END 2018-11-16 07:16 | disposition home or self-care (01) ==
LOC: D.ER 04:25
PROVIDERS: Family Medicine
DX: N80.9 Endometriosis, unspecified (principal)

== ENCOUNTER 2018-12-30 15:30 | Emergency (ER) | payer SELFPAY ==
[~2018-12-30] VITALS: Ht 160 cm; Wt 70.5 kg
[2018-12-30 15:32] VITALS: Ht 160 cm; Wt 70.5 kg
[2018-12-30 16:11] LABS: APPEARANCE CLEAR (CLEAR); BILIRUBIN NEGATIVE (NEGATIVE); COLOR YELLOW (YELLOW); GLUCOSE NEGATIVE (NEGATIVE); KETONE NEGATIVE (NEGATIVE); NITRITE NEGATIVE (NEGATIVE); PROTEIN NEGATIVE (NEGATIVE); UROBILINOGEN NORMAL (NORMAL)
[2018-12-30 16:13] LABS: BACTERIA MODERATE /hpf (NONE SEEN); EPITHELIAL CELLS 0-5 /hpf (0-5); MUCUS <1+ /lpf (NONE SEEN); RED CELLS - URINE 0-5 /hpf (0-5); WHITE CELLS - URINE OCC /hpf (0-5)
[2018-12-30] MEDS ORDERED: NAPROSYN500 MG PO (17:19)
[2018-12-30] MEDS ORDERED: CYCLOBENZAPRINE10 MG PO (17:19)
[2018-12-30] MEDS ORDERED: CIPRO500 MG PO (17:21)
--- NOTE | 2018-12-30 17:58 | NUR ---
PT IS A LOW RISK AND RESULTS REVIEWED WITH DR. WANG. RESOURCES GIVEN AND REVIEWED WITH THE PT AND SHE VERBALIZED UNDERSTANDING.
[2018-12-30 17:59] VITALS: BP 106/72
== END 2018-12-30 17:59 | disposition home or self-care (01) ==
LOC: D.ER 15:30
PROVIDERS: Family Medicine
DX: S39.012A Strain of muscle, fascia and tendon of lower back, initial encounter (principal); X50.0XXA Overexertion from strenuous movement or load, initial encounter

== ENCOUNTER 2019-04-17 02:05 | Emergency (ER) | payer OTHER ==
[~2019-04-17] VITALS: Ht 160 cm; Wt 81.8 kg
[~2019-04-17 02:05] MED LIST changes: +CIPRO500 MG PO; +NAPROSYN500 MG PO
[2019-04-17 02:09] VITALS: Ht 160 cm; Wt 81.8 kg
[2019-04-17] MEDS ORDERED: BUSPAR10 MG (02:10)
[2019-04-17] MEDS ORDERED: CELEXA10 MG (02:11)
[2019-04-17] MEDS ORDERED: ZYPREXA7.5 MG (02:11)
[2019-04-17] MEDS ORDERED: OMEPRAZOLE20 M1 (02:12)
[2019-04-17] MEDS ORDERED: MEDROL DOSE PACK4 MG PO (02:16)
[2019-04-17] MEDS ORDERED: VISTARIL25 MG PO (02:16)
[2019-04-17] MEDS ORDERED: SELENIUM SULFI118 ML TP (02:18)
[2019-04-17 03:05] VITALS: BP 142/82
== END 2019-04-17 03:05 | disposition home or self-care (01) ==
LOC: D.ER 02:05
DX: L30.9 Dermatitis, unspecified (principal)

== ENCOUNTER 2019-05-18 09:45 | Emergency (ER) | payer SELFPAY ==
[~2019-05-18] VITALS: Ht 160 cm; Wt 75.5 kg
[~2019-05-18 09:45] MED LIST changes: +BUSPAR10 MG; +CELEXA10 MG; +OMEPRAZOLE20 M1; +SELENIUM SULFI118 ML TP; +VISTARIL25 MG PO; +ZYPREXA7.5 MG
[2019-05-18 09:55] VITALS: Ht 160 cm; Wt 75.5 kg
[2019-05-18] MEDS ORDERED: MUCINEX DM ER1 EAC1 PO (10:44)
[2019-05-18] MEDS ORDERED: MEDROL DOSE PACK4 MG PO (10:44)
[2019-05-18] MEDS ORDERED: AMOXICILLIN500 M1 PO (10:44)
[2019-05-18 12:29] VITALS: BP 119/69
== END 2019-05-18 12:30 | disposition home or self-care (01) ==
LOC: D.ER 09:45
DX: J06.9 Acute upper respiratory infection, unspecified (principal); J20.9 Acute bronchitis, unspecified; Z72.0 Tobacco use